=== PATIENT | male | born 1955 | race Hispanic/Latino ===

== ENCOUNTER 2018-08-06 07:30 | Day surgery (SDC) | payer OTHER, MEDICARE ==
[2018-08-05 09:50] VITALS: BP 161/68
[2018-08-05 10:05] LABS: BASOPHILS % (AUTO) 0.6 % (0.0-5.0); EOSINOPHILS % (AUTO) 3.3 % (0.0-8.0); HEMATOCRIT 38.4 % (42-54); LYMPHOCYTES % (AUTO) 33.2 % (21.0-51.0); MEAN CORPUSCULAR HEMOGLOBIN 29.6 pg (27.0-33.0); MEAN CORPUSCULAR HGB CONC 34.2 g/dL (32.0-36.0); MEAN CORPUSCULAR VOLUME 86.6 fL (79-99); MONOCYTES % (AUTO) 8.1 % (3.0-13.0); NEUTROPHILS % (AUTO) 54.8 % (40.0-77.0); NUCLEATED RED BLOOD CELLS 0.1 % (0.0-0.19); PLATELET COUNT (AUTO) 138 K/uL (130-400); RED BLOOD CELL COUNT(AUTO) 4.44 MIL/uL (4.50-6.20); RED CELL DISTRIBUTION WIDTH 13.6 % (11.0-15.5); WHITE BLOOD COUNT (AUTO) 5.1 K/uL (4.8-10.8)
[2018-08-05 10:06] LABS: BILIRUBIN,URINE Negative (NEGATIVE); COLOR,URINE Yellow (YELLOW); GLUCOSE, URINE (UA) Negative (NEGATIVE); KETONES,URINE Negative (NEGATIVE); LEUKOCYTE ESTERASE ,URINE Negative (NEGATIVE); NITRATE,URINE Negative (NEGATIVE); OCCULT BLOOD,URINE Negative (NEGATIVE); PROTEIN,URINE Negative (NEGATIVE); UROBILINOGEN,URINE 0.2 mg/dL (0.2-1.0)
[2018-08-05 10:10] LABS: APPEARANCE,URINE CLEAR (CLEAR)
[2018-08-05 10:15] LABS: CREATININE 0.7 mg/dL (0.5-1.5); POTASSIUM 4.3 mmol/L (3.5-5.1)
--- NOTE | 2018-08-05 10:46 | NUR ---
ekg abnormal ekg reported to Dr. Arias, no further orders given. ok to proceed with sx
[~2018-08-06] VITALS: Ht 162.6 cm; Wt 70.4 kg
[2018-08-06] VITALS (19 sets, daily range): BP systolic 89–208; BP diastolic 47–82
[~2018-08-06 07:30] MED LIST: DOCU100C33 PO; FEXO180T94 PO; GLIP1TAB5 PO; LOSA25TA41 PO; MOME17SP10 NS; OMEP40CA37 PO; POLY17PO4 PO; SIMV20TA6 PO; SODIUM CHLORIDE 0.9% 1000ML 1,000 ML IV SCH; TAMS0.4C32 PO
--- NOTE | 2018-08-06 08:41 | NUR ---
pt is deaf ,non speaking Addendum: 08/06/18 at 0844 by KANCHAN WRIGHT RN RN Amended: Links added.
[2018-08-06] MEDS ORDERED: LATA7.5D OP (08:49)
[2018-08-06] MEDS ORDERED: MIDAZOLAM HCL 1 MG/ML 2ML VIAL ONE (08:59)
[2018-08-06] MEDS ORDERED: SUCCINYLCHOLINE 200MG/10ML SYR ONE (08:59)
[2018-08-06] MEDS ORDERED: GLYCOPYRROLATE 1 MG/5 ML SYRINGE ONE (08:59)
[2018-08-06] MEDS ORDERED: DEXAMETHASONE SOD PHOSPHATE 10MG/ML 1ML VIAL ONE (08:59)
[2018-08-06] MEDS ORDERED: PROPOFOL 10 MG/ML 20ML VIAL IV ONE (08:59)
[2018-08-06] MEDS ORDERED: LIDOCAINE PF 2% 5ML ABBOJECT ONE (08:59)
[2018-08-06] MEDS ORDERED: FENTANYL CITRATE PF 50 MCG/1 ML 2ML VIAL ONE ×2 (09:00→10:49)
[2018-08-06] MEDS ORDERED: NEOSTIGMINE 5MG/5ML SYR IV ONE (09:00)
[2018-08-06] MEDS ORDERED: ONDANSETRON HCL 4 MG/2 ML VIAL ONE (09:00)
[2018-08-06] MEDS ORDERED: ROCURONIUM 10MG/1ML SYR 10 MG/ML ML ONE (09:00)
[2018-08-06] MEDS ORDERED: ROPIVACAINE 0.5% 5MG/ML 30ML IJ ONE (09:02)
[2018-08-06] MEDS ORDERED: HYDRALAZINE HCL 20 MG/ML VIAL ONE (10:15)
--- NOTE | 2018-08-06 11:14 | NUR ---
RECEIVE PT RECEIVED FROM PACU VIA STRETCHER. PERINATAL INSTRUCTOR WITH PT. PT AWAKE ALERT ORIENTED X3. STABLE. NOTED SOME REDNESS TO BOTH EYES, DENIES PAIN, ITCHING OR CHANGE OF VISION. SISTER CAME IN TO ROOM, STATED HE HAS GLAUCOMA AND USES EYE DROPS FOR DRYNESS. PER SALOMON, PACU NURSE, EYE REDNESS WAS ALREADY PRESENT WHEN PT WAS IN PACU. WILL FURTHER MONITOR. ABDOMEN SOFT, DRESSING TO MID LOWER ABDOMEN DRY AND INTACT, NO OOZING NO HEMATOMA NOTED.
--- NOTE | 2018-08-06 11:20 | NUR ---
PT REFUSED ORAL FLUIDS. Addendum: 08/06/18 at 1423 by CHAN SAINI RN RN Amended: Links added.
--- NOTE | 2018-08-06 12:10 | NUR ---
ACTIVITY PT STATES HE HAS THE URGE TO VOID, UNABLE TO VOID IN URINAL, ASSISTED TO BATHROOM. PT AMBULATED WITHOUT ANY PROBLEMS. VOIDED LARGE AMOUNT WITHOUT ANY DIFFICULTY. THEN ASSISTED BACK TO ROOM. ABDOMEN REMAINS SOFT, DRESSING DRY AND INTACT, NO OOZING NO HEMATOMA NOTED.
--- NOTE | 2018-08-06 12:20 | NUR ---
ASSESS PT STATES HE FEELS SLIGHTLY DIZZY. NO OTHER COMPLAINTS MADE. SKIN PINK AND WARM, DENIES ANY PAIN, NO SOB, NO N/V. PT POSITIONED COMFORTABLY BACK TO STRETCHER. IV FLUIDS ON GOING. VITAL SIGNS TAKEN AND RECORDED.
--- NOTE | 2018-08-06 12:30 | NUR ---
ASSESS PT STATES HE FEELS A LOT BETTER. NO OTHER COMPLAINTS MADE. ABDOMEN REMAINS SOFT, DRESSING DRY AND INTACT, NO OOZING NOTED.
--- NOTE | 2018-08-06 12:45 | NUR ---
ASSESS PT STATES HE FEELS SO MUCH BETTER, NO MORE DIZZINESS, READY TO GO HOME. VITAL SIGNS WITHIN LIMITS BASELINE. NO OTHER COMPLAINTS MADE. ABDOMEN REMAINS SOFT, DRESSING DRY AND INTACT. DISCHARGE INSTRUCTIONS GIVEN TO SISTER. VERBALIZED UNDERSTANDING.
--- NOTE | 2018-08-06 12:55 | NUR ---
DISCHARGE PT DISCHARGED VIA WHEELCHAIR WITH SISTERS. PT STABLE. ASYMPTOMATIC. REDNESS TO EYES NOTED TO BE LESS, SISTER APPLIED EYEDROPS. INSTRUCTED PT/SISTER IF EYE SYMPTOMS WORSEN, OR ANY VISION CHANGES, GO TO SURVEY DATA TECHNICIAN OR EMERGENCY ROOM. VERBALIZED UNDERSTANDING.
== END 2018-08-06 12:55 | disposition home or self-care (01) ==
LOC: DAH 07:30
PROVIDERS: ATTEND Surgery
DX: K43.2 Incisional hernia without obstruction or gangrene (principal); Z98.890 Other specified postprocedural states; Z79.899 Other long term (current) drug therapy
CPT/HCPCS: 36415; 49560; 49568; 80048; 81003; 82948 ×2; 85025; 93005; A4450; A4452; A4606; A4930; C1781; J0330; J0360; J1100; J2001; J2250; J2405; J2704; J2710; J2795; J3010 ×2; J3490; J7030 ×2

== ENCOUNTER → 2022-06-29 | Outpatient (CLI) | payer OTHER, MEDICARE ==
[~2022-06-29] MED LIST changes: +LATA7.5D OP; -MOME17SP10 NS; +MOME17SP12 NS; +OMEP40CA21 PO; -OMEP40CA37 PO; +SIMV-43 PO; -SIMV20TA6 PO; -SODIUM CHLORIDE 0.9% 1000ML 1,000 ML IV SCH
== END | disposition home or self-care (01) ==
LOC: SHCH 13:12
PROVIDERS: ATTEND Internal Medicine Cardiovascular Disease
DX: I10 Essential (primary) hypertension (principal); R06.00 Dyspnea, unspecified
CPT/HCPCS: 93306

== ENCOUNTER → 2022-07-04 | Outpatient (CLI) | payer OTHER, MEDICARE ==
[~2022-07-04] MED LIST changes: +IOHEXOL 350 MG/ML 100ML INFUS..BTL IV ONE
== END | disposition home or self-care (01) ==
LOC: RAH 11:09
PROVIDERS: ATTEND Internal Medicine Cardiovascular Disease
DX: I65.23 Occlusion and stenosis of bilateral carotid arteries (principal)
CPT/HCPCS: 70498; Q9967

== ENCOUNTER → 2022-07-05 | Outpatient (CLI) | payer OTHER ==
[~2022-07-05] MED LIST changes: -IOHEXOL 350 MG/ML 100ML INFUS..BTL IV ONE
== END | disposition home or self-care (01) ==
LOC: RAH 14:33
PROVIDERS: ATTEND Internal Medicine Cardiovascular Disease
DX: Z13.6 Encounter for screening for cardiovascular disorders (principal); R93.1 Abnormal findings on diagnostic imaging of heart and coronary circulation
CPT/HCPCS: 75571